=== PATIENT | female | born 1955 | race Caucasian/White ===

== ENCOUNTER → 2016-10-28 | Day surgery (SDC) | payer BC ==
[~2016-10-28] MED LIST: Lactated Ringers 1,000 ML IV SCH; Propofol 200 MG/20 ML SDV IV ONE
[2016-10-28 09:44] VITALS: BP 114/69
--- NOTE | 2016-10-28 15:28 | OR ---
DATE OF OPERATION: 10/28/2016 PREOPERATIVE DIAGNOSIS: 1. ALTERED BOWEL HABITS, FAMILY HISTORY OF COLON CANCER. 2. CHRONIC GASTROESOPHAGEAL REFLUX DISEASE. POSTOPERATIVE DIAGNOSIS: 1. ALTERED BOWEL HABITS, FAMILY HISTORY OF COLON CANCER. 2. CHRONIC GASTROESOPHAGEAL REFLUX DISEASE. SURGEON: Catarino Ventura MD PROCEDURE: 1. EGD WITH BIOPSIES X3, KALA. 2. FULL-LENGTH COLONOSCOPY. ANESTHESIA: [employer] due to chronic GERD and anxiety disorder. COMPLICATIONS: None. SPECIMEN: 1. Antral biopsy x3. 2. KALA. FINDINGS: 1. Full-length EGD. 2. Antral gastritis with multiple small erosions. 3. Minimal spontaneous reflux without hiatal hernia or esophagitis. 4. Full-length colonoscopy. 5. Minimal to mild sigmoid diverticulosis. RECOMMENDATIONS: Medical followup with Dr. Cornelius. INDICATIONS: The patient was in for a physical. She admitted to having some persistent heartburn and altered bowel habits. She does have a family history of colon CA as well. Dr. Cornelius sent her for upper and lower endoscopy. DESCRIPTION OF PROCEDURE: The patient was prepped and draped, placed in a left lateral decubitus position. A lubricated Olympus gastroscope was inserted over a bit and easily intubated in the esophagus. Esophageal lining was benign in its entire course. Z-line was crisp and sharp around 39 cm. There was no hiatal hernia. There was some mild spontaneous reflux, but no distal esophagitis, stricturing, ulceration, or Martinez's changes. The scope was advanced into the stomach through the pylorus into the third portion of the duodenum. Duodenal bulb, second and third portion of duodenum appeared benign. The scope was brought back into the stomach and retroflexed. The upper fundus and cardia appeared unremarkable. Upon straightening, thorough evaluation of the rest of the fundus and antrum showed some diffuse gastritis starting in the distal fundus, but extending all the way to the distal antrum. There were few small erosions. Three biopsies were taken along with a KALA. Air was then suctioned. Scope removed without complication. A lubricated Olympus colonoscope was inserted and easily advanced to the cecum. Direct visualization of the ileocecal valve was accomplished. It was difficult to get into the cecal pouch, but no gross abnormalities were seen. Upon withdrawal, throughout the ascending, transverse and descending areas, no abnormalities were found. The patient did have a few scattered diverticula in the sigmoid area, very minimal in severity. No acute inflammatory changes. There were no signs of any polyps, masses, ulcerations, or bleeding sites. No vascular abnormalities or signs of colitis. The rectal vault was unremarkable. Retroflexion of scope in the rectum showed no anal lesions. Air was then suctioned and scope was removed without complication. DENISA/KAR /[id number]
== END ==
LOC: CC.SDS 07:55
PROVIDERS: ATTEND Family Medicine
DX: K57.30 Diverticulosis of large intestine without perforation or abscess without bleeding (principal); K29.50 Unspecified chronic gastritis without bleeding; K25.9 Gastric ulcer, unspecified as acute or chronic, without hemorrhage or perforation; K21.9 Gastro-esophageal reflux disease without esophagitis; F41.9 Anxiety disorder, unspecified; Z88.0 Allergy status to penicillin; Z88.1 Allergy status to other antibiotic agents; Z88.2 Allergy status to sulfonamides; Z88.8 Allergy status to other drugs, medicaments and biological substances; Z79.82 Long term (current) use of aspirin; Z79.899 Other long term (current) drug therapy
CPT/HCPCS: 43239; 45378; 87081; J2704; J7120